=== PATIENT | male | born 1955 | race Caucasian/White ===

== ENCOUNTER → 2017-10-21 08:44 | Outpatient (CLI) | payer OTHER, SELFPAY ==
[2017-10-21 09:19] LABS: Hematocrit 41.6 % (40-54); Hemoglobin 13.7 g/dl (13.0-16.5); Mean Corp Hgb Conc 32.9 g/gl (32-36); Mean Corpuscular Hgb 28.5 pg (27.0-32.0); Mean Corpuscular Volume 86.7 fL (80-94); Mean Platelet Vol. 9.7 fl (6.2-12.0); Platelet Count 369 K/mm3 (150-450); RBC Distribution Width CV 13.4 % (11.6-14.6); RBC Distribution Width SD 41.1 fl (35.1-43.9); White Blood Count 5.9 K/mm3 (4.4-11.0)
[2017-10-21 09:20] LABS: Scan Indicated on CBC? Y/N NO
[2017-10-21 09:58] LABS: ALB/GLOB Ratio 1.1 RATIO (0.9-2.4); AST(SGOT) 18 U/L (15-37); Alanine Aminotransfer ALT/SGPT 40 U/L (16-61); Albumin, Serum 3.6 g/dL (3.2-5.0); Alkaline Phosphatase 79 U/L (45-117); Anion Gap 5 (5-15); BUN 19 mg/dL (7-18); Calcium,Total 8.7 mg/dL (8.5-10.1); Chloride 102 mmol/L (98-107); Cholesterol 184 mg/dL (200); Creatinine, Serum 1.19 mg/dL (0.70-1.30); EST Glomerular Filtration Rate 66 mL/min (>60); Est Glom Filt Rate - Afr Amer 80 mL/min (>60); Globulin 3.4 g/dL (2.2-4.2); Glucose 103 mg/dL (74-106); High Density Lipoprotein 58 mg/dL; PSA,Total - Annual Screen 0.77 ng/mL (0.00-4.00); Potassium 4.3 mmol/L (3.5-5.1); Sodium Level 137 mmol/L (136-145); Triglycerides 124 mg/dL; Very Low Density Lipoprotein 25 mg/dL (5-40)
== END ==
PROVIDERS: Family Provider Family Medicine; PCP Family Medicine; Visit Provider Family Medicine
DX: E78.2 Mixed hyperlipidemia (principal); I10 Essential (primary) hypertension; Z12.5 Encounter for screening for malignant neoplasm of prostate
CPT/HCPCS: 36415; 80053; 80061; 84153; 85027; G0103

== ENCOUNTER → 2017-12-22 14:54 | Outpatient (CLI) | payer OTHER, SELFPAY ==
--- NOTE | 2017-12-22 05:05 | RAD_ITS ---
STUDY: X-RAY - BILATERAL RIBS WITH CHEST REASON FOR EXAM: Male, 62 years old. Pain TECHNIQUE - RIBS: Six view(s) of the ribs. TECHNIQUE - CHEST: Single frontal view of the chest. COMPARISON: Prior comparison studies are not available for review at this time. FINDINGS - RIBS : No abnormalities are seen in the ribs. FINDINGS - CHEST: The lungs are clear and adequately expanded. There is no demonstrated pleural abnormality. Normal size heart. Normal mediastinum and tsering. Normal visualized pulmonary arteries. Normal visualized aortic arch and descending thoracic aorta. There is trace levoscoliosis of the upper thoracic spine. There is an old fracture of the mid left clavicle. Cholecystectomy clips are present. RAD/Ribs [place] Min 4V w/PA Chest IMPRESSION: RIBS: No abnormalities are seen radiographically in the ribs. If further evaluation is needed, a chest CT can be considered. CHEST: There are no significant cardiopulmonary abnormalities. Electronically Signed: Poly Cuellar MD at 15:02 EDT Tel Direct: [phone], Service support ,
== END ==
PROVIDERS: Family Provider Family Medicine; PCP Family Medicine; Visit Provider Family Medicine
DX: R07.89 Other chest pain (principal)
CPT/HCPCS: 71111

== ENCOUNTER → 2018-06-23 09:34 | Outpatient (CLI) | payer OTHER, SELFPAY ==
--- NOTE | 2018-06-23 10:30 | RAD_ITS ---
STUDY: X-RAY - LEFT FOOT CLINICAL: Male, 62 years old. Lateral foot pain TECHNIQUE: 3 view(s) of the foot. # of Images: 3 COMPARISON: None. FINDINGS: Normal talus, calcaneus, and tarsal bones. Normal visualized subtalar, talonavicular, calcaneocuboid, tarsal and tarsometatarsal articulations. Normal metatarsi. Normal metatarsophalangeal joint of the great toe. Normal tibial and fibular sesamoid bones. Normal interphalangeal joint of the great toe. Normal phalanges of the great toe. Normal second through fifth metatarsophalangeal joints. Normal interphalangeal joints and phalanges of the lesser toes. The soft tissue structures are unremarkable. RAD/Foot min 3 Views IMPRESSION: Normal x-ray examination of the foot. Electronically Signed: Jenna Concepcion MD at 14:08 EDT Tel , Service support ,
--- NOTE | 2018-06-23 10:30 | RAD_ITS ---
STUDY: X-RAY - RIGHT FOOT CLINICAL: Male, 62 years old. Right pain around ankle/top foot TECHNIQUE: 3 view(s) of the foot. # of Images: 3 COMPARISON: None. FINDINGS: Normal talus, calcaneus, and tarsal bones. Normal visualized subtalar, talonavicular, calcaneocuboid, tarsal and tarsometatarsal articulations. Normal metatarsi. There is degenerative arthrosis of the metatarsophalangeal joint of the hallux . Normal tibial and fibular sesamoid bones. Normal interphalangeal joint of the great toe. Normal phalanges of the great toe. Normal second through fifth metatarsophalangeal joints. Normal interphalangeal joints and phalanges of the lesser toes. The soft tissue structures are unremarkable. RAD/Foot min 3 Views IMPRESSION: There is degenerative arthrosis of the metatarsophalangeal joint of the hallux . Electronically Signed: Jenna Concepcion MD at 14:12 EDT Tel , Service support ,
[2018-06-23 10:32] LABS: Erythrocyte Sedimentation Rate 3 mm/hr (0-20)
[2018-06-23 10:49] LABS: Uric Acid 4.8 mg/dL (3.5-7.2)
== END ==
PROVIDERS: Family Provider Family Medicine; PCP Family Medicine; Referring Provider Family Medicine; Visit Provider Family Medicine
DX: M79.672 Pain in left foot (principal); M79.671 Pain in right foot
CPT/HCPCS: 36415; 73630; 84550; 85652

== ENCOUNTER → 2018-09-30 08:41 | Outpatient (CLI) | payer OTHER, SELFPAY ==
[2015-07-25 06:46] VITALS: BMI 25.5
[2018-09-30 09:20] LABS: ALB/GLOB Ratio 1.1 RATIO (0.9-2.4); AST(SGOT) 17 U/L (15-37); Alanine Aminotransfer ALT/SGPT 33 U/L (16-61); Albumin, Serum 3.8 g/dL (3.2-5.0); Alkaline Phosphatase 79 U/L (45-117); Anion Gap 6 (5-15); BUN 20 mg/dL (7-18); Calcium,Total 8.6 mg/dL (8.5-10.1); Chloride 104 mmol/L (98-107); Cholesterol 189 mg/dL (200); Creatinine, Serum 1.25 mg/dL (0.70-1.30); EST Glomerular Filtration Rate 62 mL/min (>60); Est Glom Filt Rate - Afr Amer 76 mL/min (>60); Globulin 3.5 g/dL (2.2-4.2); Glucose 101 mg/dL (74-106); High Density Lipoprotein 65 mg/dL; Potassium 4.2 mmol/L (3.5-5.1); Protein, Total 7.3 g/dL (6.4-8.2); Sodium Level 137 mmol/L (136-145); Triglycerides 232 mg/dL; Very Low Density Lipoprotein 46 mg/dL (5-40)
== END ==
PROVIDERS: Family Provider Family Medicine; PCP Family Medicine; Referring Provider Family Medicine; Visit Provider Family Medicine
DX: E78.2 Mixed hyperlipidemia (principal); I10 Essential (primary) hypertension; Z12.5 Encounter for screening for malignant neoplasm of prostate
CPT/HCPCS: 36415; 80053; 80061

== ENCOUNTER → 2018-10-24 13:05 | Outpatient (CLI) | payer OTHER, SELFPAY ==
[2018-10-24 13:57] LABS: PSA,Total - Annual Screen 0.59 ng/mL (0.00-4.00)
== END ==
PROVIDERS: Family Provider Family Medicine; PCP Family Medicine; Referring Provider Family Medicine; Visit Provider Family Medicine
DX: Z12.5 Encounter for screening for malignant neoplasm of prostate (principal)
CPT/HCPCS: 36415; 84153; G0103

== ENCOUNTER 2019-03-15 09:14 | Day surgery (SDC) | payer OTHER, SELFPAY ==
[2019-03-07 08:54] VITALS: BMI 26.6
--- NOTE | 2019-03-07 09:09 | HP_ITS ---
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 Is patient in pain?: No Allergies Penicillins Allergy (Verified 03/07/19 08:54) Hives Medications Atorvastatin Calcium [Lipitor] 20 mg PO QHS 05/10/14 [History Confirmed 03/07/19] Lisinopril [Zestril] 5 mg PO QHS 07/17/15 [History Confirmed 03/07/19] PFSH Medical History High cholesterol (Acute) HTN (hypertension) (Chronic) Surgical History (Updated 03/07/19 @ 08:53 by Sarah Horton) S/P cholecystectomy (Acute) S/P colonoscopy (Acute) s/p TEMS (Acute) Family History (Updated 03/07/19 @ 08:54 by Sarah Horton) Father Heart disease Hypertension CAD (coronary artery disease) Social History (Updated 03/07/19 @ 09:08 by Ila Thomas MD) Smoking Status: Never smoker alcohol intake: current alcohol intake frequency: a few times a month HPI HPI HPI: PRISCILLA BRENNER, is a 63 M who presents to the office today for HPI HPI Surgical H&P: Yes HPI: PRISCILLA BRENNER, is a 63 M who presents to the office today for colonoscopy due to occasional diarrhea and constipation and history of rectal carcinoid status post total mucosal excision 2004. 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 Patient did also undergo total mucosal resection of the rectal carcinoid area which did not show any further evidence of carcinoid. Patient states he does normally have bowel movements daily denies any blood however he has been having this chronic occasional diarrhea and constipation history. Patient initially thought that the constipation may be related to food however is not sure that was the case. Patient's last colonoscopy was in [address] Bello which was negative. Patient also reports 1-2 scopes in between the 2004 and 2014 scope. Patient states paternal uncle was diagnosed with colon cancer in his 50s. ROS General General: Yes colon cancer (Rectal carcinoid); no weight change or fatigue Gastro Gastrointestinal: No abdominal pain, No nausea or vomiting, Yes diarrhea (Occasional about twice a month), Yes constipation (Constipation about once a month), No blood in stool, No acid reflux, No hemorrhoids, No ulcers, No gallbladder problem, No black,tarry stools Exam Const General: cooperative, comfortable, no acute distress Resp Effort & Inspection: normal respiratory effort Cardio Rate: regular rate GI Inspection: non-distended Palpation: soft, no guarding, no hernias, nontender Neuro General: oriented x3 Cranial Nerves: CN's II-XI intact bilaterally Psych Affect: normal affect Assessment & Plan Problems 1. Diarrhea R19.7 2. 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 I have offered the patient colonoscopy for evaluation of diarrhea as well as history of rectal carcinoid. I have explained the risks/benefits of the procedure and described the procedure. I have discussed the risks with the patient, including but not limited to: infection, bleeding, perforation of the GI tract requiring emergency surgery, inability to complete the procedure, injury to any internal organs, complications of anesthesia, etc. - the patient understands and agrees to proceed. I have answered all the patient's questions to the patient's satisfaction and the patient has no further questions. The patient has been given instructions for the colon cleansing preparation. 1 day of clears, MiraLAX Dulcolax split prep. Ila Thomas M.D. Pager: [phone] [facility] [address] [place] [address], [address] [place] [address] Office: 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 There are no clinical changes since date of exam.
[2019-03-15] VITALS (7 sets, daily range): BP systolic 95–137; BP diastolic 53–87; PULSE 61–80; RESP 16; TEMP 36.1–36.7; O2SAT 96–98; BMI 26.6
--- NOTE | 2019-03-15 10:15 | COLBX_PTH ---
PATIENT: PRISCILLA BRENNER LOC: EN U#:[id number] AGE/SX: 63/M ROOM: RE03/15/[address]: Dr. Ila Thomas MD : 1955 BED: DIS: 03/15/2019 SPEC #: [id number] RECD: 03/15/19 10:32 STATUS: MICHELLE LUIS ALBERTO #: [id number] BIANCA: 03/15/19 10:[address]: Ila Thomas DEPT: SURGICAL PATHOLOGY RECD BY: Angel Smith ENTERED: 03/15/19 14:32 SP TYPE: COLON BX OT DR: Dr. Lissette Garber, DO Tissues: A - Transverse colon B - Descending colon Procedures: Surgery Specimen Level IV HEADER OPERATION: Colonoscopy (MAC) PRE-OP DIAGNOSIS: Diarrhea, history malignant carcinoid tumor of rectum TISSUE SUBMITTED: A - Biopsy of proximal transverse polyp, B - Biopsy of proximal descending colon polyp MICROSCOPIC DIAGNOSIS A. Proximal transverse colon polyp, biopsy: Fragment of benign colonic mucosa. See comment. B. Proximal descending colon polyp, biopsy: Tubular adenoma. AM:larry 03/16/19 COMMENT A. Neither hyperplastic nor adenomatous change is seen. Clinical correlation is suggested. MICROSCOPIC DESCRIPTION Slides are reviewed. GROSS DESCRIPTION A - Received in fixative is one container labeled with the patient's name and designated biopsy of proximal transverse colon polyp. The specimen consists of one irregular fragment of light solorio soft tissue that measures 0.4 x 0.3 x 0.1 cm. The specimen is totally submitted in one cassette. B - Received in fixative is one container labeled with the patient's name and designated biopsy of proximal descending colon polyp. The specimen consists of one irregular fragment of light solorio soft tissue that measures 0.3 x 0.2 x 0.1 cm. The specimen is totally submitted in one cassette. / SJ:larry 03/15/19 TC:5 CPT: 58577 x2
--- NOTE | 2019-03-15 10:20 | OP.ENDO_ITS ---
03/15/2019 Lissette Lopez Do Re : Colonoscopy procedure for David Callahan Dear John This procedure was performed on Friday, March 15, 2019. My impressions and recommendations are as follows: Impressions : - Two less than 5 mm polyps in the proximal descending colon and in the proximal transverse colon, removed with a cold biopsy forceps. Resected and retrieved. - The examination was otherwise normal on direct and retroflexion views. Recommendations : - Discharge patient to home. - Continue present medications. - Await pathology results. - Repeat colonoscopy in 3 - 5 years for surveillance based on pathology results. My findings are described in the full procedure note, which is enclosed. If I can be of further assistance, please feel free to contact me at Doctor phone number(s): , Work: . Sincerely, MD Ila Burks MD 03/15/2019 10:20:10 AM This report has been signed electronically.
== END 2019-03-15 10:58 | disposition home or self-care (01) ==
LOC: EN 09:15
PROVIDERS: Family Provider Family Medicine; PCP Family Medicine; Referring Provider Surgery; Visit Provider Surgery
PROC: 0DJD8ZZ Inspection of Lower Intestinal Tract, Via Natural or Artificial Opening Endoscopic (ICD-10-PCS; CPT 45378; principal; 2019-03-15 10:10)
DX: D12.4 Benign neoplasm of descending colon (principal); D12.3 Benign neoplasm of transverse colon; R19.7 Diarrhea, unspecified; Z85.040 Personal history of malignant carcinoid tumor of rectum; K59.00 Constipation, unspecified; Z80.0 Family history of malignant neoplasm of digestive organs; I10 Essential (primary) hypertension; E78.00 Pure hypercholesterolemia, unspecified; Z88.0 Allergy status to penicillin
CPT/HCPCS: 45380; 88305; J7120

== ENCOUNTER → 2019-11-13 08:22 | Outpatient (CLI) | payer OTHER, SELFPAY ==
[2019-03-15 09:28] VITALS: BMI 26.6
[2019-11-13 09:35] LABS: ALB/GLOB Ratio 1.2 RATIO (0.9-2.4); AST(SGOT) 16 U/L (15-37); Alanine Aminotransfer ALT/SGPT 31 U/L (16-61); Albumin, Serum 3.8 g/dL (3.2-5.0); Alkaline Phosphatase 70 U/L (45-117); Anion Gap 8 (5-15); BUN 20 mg/dL (7-18); BUN/Creat Ratio 17.2 RATIO (10-20); Calcium,Total 8.8 mg/dL (8.5-10.1); Chloride 101 mmol/L (98-107); Cholesterol 161 mg/dL (200); Creatinine, Serum 1.16 mg/dL (0.70-1.30); EST Glomerular Filtration Rate 68 mL/min (>60); Est Glom Filt Rate - Afr Amer 82 mL/min (>60); Globulin 3.2 g/dL (2.2-4.2); Glucose 106 mg/dL (74-106); High Density Lipoprotein 79 mg/dL; PSA,Total - Annual Screen 0.56 ng/mL (0.00-4.00); Sodium Level 138 mmol/L (136-145); Triglycerides 67 mg/dL; Very Low Density Lipoprotein 13 mg/dL (5-40)
== END ==
PROVIDERS: PCP Family Medicine; Referring Provider Family Medicine; Visit Provider Family Medicine
DX: Z00.00 Encounter for general adult medical examination without abnormal findings (principal)
CPT/HCPCS: 36415; 80053; 80061; 84153; G0103

== ENCOUNTER 2024-02-15 11:32 | Day surgery (SDC) | payer MEDICARE, OTHER, SELFPAY ==
--- NOTE | 2024-02-15 11:40 | H&P.OPEN ---
[facility] - General General Date of Service: 02/15/24 HPI Narrative PRISCILLA BRENNER, is a 68 M who presents for screening colonoscopy due to history of colon polyps. Patient last colonoscopy was 03/2019. In 2004 patient was found to have a rectal carcinoid which he underwent total mucosal resection of the rectal carcinoid area which did not show any further evidence of carcinoid. Patient denies any chronic abdominal pain/nausea/vomiting/reflux. [facility] Medical History (Updated 02/15/24 @ 12:[address] Ila Thomas MD) Personal history of malignant carcinoid tumor of rectum Wears contact lenses Cancer Former smoker High cholesterol HTN (hypertension) Home Medications ?Medication ?Instructions ?Recorded ?Last Taken ?Type atorvastatin 20 mg tablet 20 mg PO QHS 05/10/14 Unknown History lisinopril 5 mg tablet 5 mg PO QHS 07/17/15 Unknown History aspirin 81 mg tablet,delayed 81 mg PO DAILY 01/28/24 Unknown History release (Adult Low Dose Aspirin) Allergy/AdvReac Type Severity Reaction Status Date / Time Penicillins Allergy Hives Verified 02/15/24 12:05 Family History (Updated 01/28/24 @ 09:47 by Aspen York) Father Heart disease Hypertension CAD (coronary artery disease) Uncle Colon cancer Surgical History S/P colonoscopy s/p TEMS S/P cholecystectomy Social History (Updated 01/28/24 @ 09:48 by Aspen York) household members: spouse current occupational status: retired Smoking Status: Never smoker alcohol intake: current alcohol intake frequency: a few times a month substance use type: does not use Past Medical/Surgical History Planned Operation Planned Operative Procedure(s): CSCOPE S.O.S: No Previous Hospitalizations/Surgeries HX Hospitalizations: No HX of Surgeries: LAP LOUIE - [place] TENS 2006 Any Problems With Anesthesia: No You/Your Family Experience Fever (Hyperthermia) With Anes: No Cholinesterase deficiency: No Cardiovascular Hx Chest Pain within Last 2 months: No Hx of Irregular Heartbeat and/or Afib: No Hx Heart Attack: No Hx Congestive Heart Failure: No Hx Rheumatic Fever: No Hx Hypertension: Yes (CONTROLLED WITH MED) Hx Internal Defibrillator: No Hx Pacemaker: No Hx Cardiac Catheterization: No Hx Cardiac Surgery/Stents/Etc.: No Hx Stress Test: No Hx Pain in Legs when Walking/Leg Cramps: No Respiratory Chronic Cough: No HX of Shortness of Breath: No Hoarseness: No Hx Chronic Obstructive Pulmonary Disease (COPD): No Hx Asthma: No Hx Emphysema: No Hx Sleep Apnea: No CPAP: No BIPAP: No Hx Respiratory Tract Infection/Cold (presently): No Do You Snore Loudly (louder than talking or can be heard): No Do You Often Feel Tired/ Fatigued/ Sleepy Dring Daytime?: No Has Anyone Observed You Stop Breathing During Sleep?: No Result (for STOP score): Negative Hx Smoking: No Smoking Status: Never smoker Gastrointestinal Hx Gastrointestinal Disorders: No Hx Gastrointestinal Bleed: No Hx Ulcer: No Hx Hiatal Hernia: No Difficulty Chewing/Swallowing: No Special diet followed at home: No Hx Unplanned Weight Loss of 20#: No HX Unplanned Weight Gain of 20#: No Neurological Hx Seizures: No HX Syncope/Blackout Spells/Unconsciousness: No Hx Transient Ischemic Attacks (TIA): No Hx Multiple Sclerosis: No Hx Parkinson's Disease: No Hx Head/Neck Injury: No Hx Headaches: No Hx Back Injury/Pain: No Recent Onset of Speech Difficulty: No Restless Legs: No Does patient have nerve stimulator: No Blood Disorder Hx Leukemia: No Bleeding Tendencies: No Hx Deep Vein Thrombosis: No Hx High Cholesterol: Yes (ON MEDS) Blood Transmitted Disease: No Hx Hepatitis: No Hx Cirrhosis: No Hx Anemia: No Hx Blood Disorders: No Reproduction : No Genitourinary Hx Renal Disease: No Musculoskeletal Hx Arthritis: No Hx Rheumatoid Arthritis: No Hx Gout: No Recent Onset of an Orthopedic Problem: No Endocrine Hx Diabetes: No Thyroid Disease: No Hx Steroid Therapy: No Psycho/Social Hx Substance Use: No Hx Alcohol Use: Yes (SOCIALLY) Hx Anxiety: No Hx Depression: No Mental Illness: No Hx Dementia: No Miscellaneous Hx Cancer: Yes (POLYP REMOVED, NO INCIDENCE SINCE) Recent Exposure to Contagious Disease: No Hx of C-Diff: No Any Loose Teeth: No Allergies Penicillins Allergy (Verified 02/15/24 12:05) Hives Discharge Is Pt Admitted From a Long-Term, or a Nursing Home: No After D/C, Where Do you Plan to Go: Return Home From the PAT History Number of Risk Factors: 2 Physical Exam Const alert, oriented x3 and no apparent distress HEENT normocephalic and head/scalp atraumatic Resp normal respiratory effort Cardio regular rate GI soft to palpation and non-tender; Negative for non-distended Palpation: Negative for guarding Extremity no clubbing, cyanosis or edema Skin no rashes or lesions noted Neuro CN's II-XII intact bilaterally Psych mental status grossly normal Assessment & Plan Assessment/Plan (1) Personal history of malignant carcinoid tumor of rectum: (2) Hx of colonic polyps: Surgery Risks - Colonoscopy I discussed with the patient the risks of the procedure: Yes Risks Include but are not Limited To: Risks include but are not limited to: Bleeding, perforation requiring further surgery, inability to complete colonoscopy requiring barium enema.
[2024-02-15 12:06] VITALS: BP 128/64; PULSE 72; RESP 16; TEMP 36.7; O2SAT 100; BMI 25.2
[2024-02-15] MEDS: Lactated Ringers 1,000 ML 15 ML IV (12:09)
[2024-02-15 12:40] VITALS: BP 126/64; BP 128/64; PULSE 47; RESP 16; TEMP 36.2; O2SAT 99
[2024-02-15 12:45] VITALS: BP 113/64; BP 128/64; PULSE 79; RESP 16
[2024-02-15 12:50] VITALS: BP 122/75; BP 128/64; PULSE 81; RESP 16; O2SAT 97
--- NOTE | 2024-02-15 12:50 | OP.CCLET_ITS ---
02/15/2024 Lissette Lopez Do Re : Colonoscopy procedure for David Callahan Dear John This procedure was performed on Thursday, February 15, 2024. My impressions and recommendations are as follows: Impressions : - The entire examined colon is normal on direct and retroflexion views. - No specimens collected. Recommendations : - Discharge patient to home. - Resume previous diet. - Continue present medications. - Repeat colonoscopy in 5 years for surveillance. My findings are described in the full procedure note, which is enclosed. If I can be of further assistance, please feel free to contact me at Doctor phone number(s): , Work: . Sincerely, MD Ila Burks MD 02/15/2024 12:50:02 PM This report has been signed electronically.
--- NOTE | 2024-02-15 12:50 | OP.COLON_ITS ---
Patient Name: David Callahan Procedure Date: 02/15/2024 12:08 PM Date of : 1955 Age: 68 Procedure: Colonoscopy Indications: High risk colon cancer surveillance: Personal history of colonic polyps, Incidental - Malignant carcinoid tumor of the rectum Providers: Ila Thomas MD Referring MD: Lissette Lopez Do Medicines: Monitored Anesthesia Care Patient Profile: This is a 68 year old male. Last Colonoscopy: March 2019. Complications: No immediate complications. Procedure: Pre-Anesthesia Assessment: - Prior to the procedure, a History and Physical was performed, and patient medications and allergies were reviewed. The patient's tolerance of previous anesthesia was also reviewed. The risks and benefits of the procedure and the sedation options and risks were discussed with the patient. All questions were answered, and informed consent was obtained. Prior Anticoagulants: The patient has taken no anticoagulant or antiplatelet agents. ASA Grade Assessment: Per anesthesia. After reviewing the risks and benefits, the patient was deemed in satisfactory condition to undergo the procedure. After I obtained informed consent, the scope was passed under direct vision. Throughout the procedure, the patient's blood pressure, pulse, and oxygen saturations were monitored continuously. The Colonoscope was introduced through the anus and advanced to the cecum, identified by the appendiceal orifice, ileocecal valve and palpation. The colonoscopy was performed without difficulty. The patient tolerated the procedure well. The quality of the bowel preparation was good. Scope In: 12:20:34 PM Scope Withdrawal Time 0 hours 6 minutes 43 seconds Scope Out: 12:33:46 PM Total Procedure Duration Time 0 hours 13 minutes 12 seconds Findings: The perianal and digital rectal examinations were normal. The entire examined colon appeared normal on direct and retroflexion views. Impression: - The entire examined colon is normal on direct and retroflexion views. - No specimens collected. Recommendation: - Discharge patient to home. - Resume previous diet. - Continue present medications. - Repeat colonoscopy in 5 years for surveillance. Procedure Code(s): --- Professional --- G0105, PT, Colorectal cancer screening; colonoscopy on individual at high risk Diagnosis Code(s): --- Professional --- Z86.010, Personal history of colonic polyps CPT copyright 2021 [employer]. All rights reserved. The codes documented in this report are preliminary and upon presbyterian clergy review may be revised to meet current compliance requirements. MD Ila Burks MD 02/15/2024 12:50:02 PM This report has been signed electronically. Number of Addenda: 0 Note Initiated On: 02/15/2024 12:08 PM
[2024-02-15 12:53] VITALS: BP 125/66; BP 128/64; PULSE 75; RESP 16; TEMP 36.6; O2SAT 97
[2024-02-15 13:05] VITALS: BP 128/64
== END 2024-02-15 13:10 | disposition home or self-care (01) ==
LOC: EN 11:35 → AC 11:36
PROVIDERS: PCP Family Medicine; Referring Provider Family Medicine; Visit Provider Surgery
PROC: 0DJD8ZZ Inspection of Lower Intestinal Tract, Via Natural or Artificial Opening Endoscopic (ICD-10-PCS; CPT 45378; principal; 2024-02-15 12:40)
DX: Z12.11 Encounter for screening for malignant neoplasm of colon (principal); I10 Essential (primary) hypertension; E78.00 Pure hypercholesterolemia, unspecified; Z80.0 Family history of malignant neoplasm of digestive organs; Z86.010 Personal history of colon polyps; Z79.82 Long term (current) use of aspirin; Z79.899 Other long term (current) drug therapy
CPT/HCPCS: G0105; J7120; J2405